=== PATIENT | male | born 1955 | race Caucasian/White ===

== ENCOUNTER → 2024-06-09 08:08 | Outpatient (REF) | payer BC, SELFPAY | LOC: RCS 08:08 | PROVIDERS: ATTENDING PHYSICIAN Internal Medicine Cardiovascular Disease; FAMILY PHYSICIAN Internal Medicine Geriatric Medicine | DX: R06.09 Other forms of dyspnea (principal); I25.10 Atherosclerotic heart disease of native coronary artery without angina pectoris | CPT/HCPCS: 93017; 93350 ==

== ENCOUNTER → 2024-11-18 09:17 | Outpatient (REF) | payer BC, SELFPAY | LOC: HWRAD 09:17 | PROVIDERS: ATTENDING PHYSICIAN Nurse Practitioner Primary Care | DX: R10.11 Right upper quadrant pain (principal); R10.9 Unspecified abdominal pain; K80.20 Calculus of gallbladder without cholecystitis without obstruction; R11.2 Nausea with vomiting, unspecified | CPT/HCPCS: 76700 ==

== ENCOUNTER → 2024-12-08 09:44 | Outpatient (REF) | payer BC, SELFPAY | LOC: HWRAD 09:44 | PROVIDERS: ATTENDING PHYSICIAN Nurse Practitioner Primary Care | DX: N17.9 Acute kidney failure, unspecified (principal); R10.9 Unspecified abdominal pain; N20.0 Calculus of kidney; D86.0 Sarcoidosis of lung; R80.9 Proteinuria, unspecified | CPT/HCPCS: 74176 ==